=== PATIENT | female | born 1960 | race Caucasian/White ===

== ENCOUNTER 2023-09-26 09:17 | Outpatient (CLI) | payer BC, SELFPAY | END 2023-09-26 09:18 | disposition home or self-care (01) | LOC: NFLDREF 09-28 13:45 | PROVIDERS: Visit Provider Obstetrics & Gynecology | DX: Z01.419 Encounter for gynecological examination (general) (routine) without abnormal findings (principal); Z13.6 Encounter for screening for cardiovascular disorders | CPT/HCPCS: 80061 ==

== ENCOUNTER 2023-11-15 11:28 | Outpatient (CLI) | payer BC, SELFPAY ==
--- NOTE | 2023-11-15 11:30 | CRLHL7_ITS ---
For Patients: As a result of the Century Cures Act, medical imaging exams and procedure reports are released immediately into your electronic medical record. You may view this report before your referring provider. If you have questions, please contact your health care provider. BILATERAL DIGITAL SCREENING MAMMOGRAM WITH COMPUTER-AIDED DETECTION AND TOMOSYNTHESIS CLINICAL HISTORY: Routine screening exam. COMPARISON: 05/12/2022, 02/18/2021. TECHNIQUE: Digital mammogram in CC and MLO projections including computer-aided detection (CAD). Tomosynthesis was used in this interpretation. BREAST COMPOSITION: There are scattered areas of fibroglandular density. FINDINGS: RIGHT Breast: Focal nodular density within the lower outer quadrant 7 cm from the nipple. LEFT Breast: No suspicious findings. IMPRESSION: RIGHT breast asymmetry/mass. RECOMMENDATIONS: Additional mammographic views of the RIGHT breast including 3D spot compression cc/MLO. RIGHT breast ultrasound may also be required. BI-RADS Category 0: Incomplete: Need Additional Imaging Evaluation and/or Prior Mammograms for Comparison The [facility] will contact the patient for follow-up. A lay language report of this examination will be provided to the patient. Dictated by Sawyer Billings MD @ 11/21/2023 8:44:26 AM jj/Dictated by: Sawyer Billings MD @ 11/21/2023 8:44:00 AM (Electronically Signed)
== END 2023-11-15 11:29 | disposition home or self-care (01) ==
LOC: MAMMO 11:29
PROVIDERS: Visit Provider Obstetrics & Gynecology
DX: Z12.31 Encounter for screening mammogram for malignant neoplasm of breast (principal); N63.10 Unspecified lump in the right breast, unspecified quadrant
CPT/HCPCS: 77063; 77067

== ENCOUNTER 2023-11-22 10:51 | Outpatient (CLI) | payer BC, SELFPAY ==
--- NOTE | 2023-11-22 10:45 | CRLHL7_ITS ---
For Patients: As a result of the Century Cures Act, medical imaging exams and procedure reports are released immediately into your electronic medical record. You may view this report before your referring provider. If you have questions, please contact your health care provider. RIGHT DIAGNOSTIC MAMMOGRAM WITH TOMOSYNTHESIS 11/22/2023 RIGHT ULTRASOUND 11/22/2023 CLINICAL HISTORY: RIGHT breast mass/asymmetry. COMPARISON: 11/15/2023. TECHNIQUE: Digital RIGHT mammogram in 2 projections. Tomosynthesis was used in this interpretation. Real-time ultrasound imaging of RIGHT breast with imaging documentation. BREAST COMPOSITION: Scattered fibroglandular densities. FINDINGS: 3D spot compression CC/MLO RIGHT breast mammogram images submitted. Persistent lobular density within the RIGHT breast. No architectural distortion or suspicious calcifications. Targeted RIGHT breast ultrasound performed at 8 o`clock 9 cm from the nipple. In this location there is a mildly prominent lymph node which has increased in size from the prior study. The cortex measures 2.6 millimeters. The lymph node measures 10 x 5 x 11 millimeters. IMPRESSION: Increased size of intramammary lymph node RIGHT breast 8 o`clock 9 cm from the nipple measuring up to 1.1 cm. RECOMMENDATIONS: Ultrasound-guided core needle biopsy recommended. BI-RADS Category 4: Suspicious The [facility] will contact the patient for follow-up. A lay language report of this examination will be provided to the patient. Dictated by Sawyer Billings MD @ 11/22/2023 12:12:34 PM RUPESH/brad DW/Dictated by: Sawyer Billings MD @ 11/22/2023 12:12:00 PM (Electronically Signed)
--- NOTE | 2023-11-22 11:15 | CRLHL7_ITS ---
For Patients: As a result of the Century Cures Act, medical imaging exams and procedure reports are released immediately into your electronic medical record. You may view this report before your referring provider. If you have questions, please contact your health care provider. Please see diagnostic RIGHT mammogram entry in CRTIS for combination RIGHT diagnostic mammogram/RIGHT breast ultrasound report. Sawyer Billings MD @11/22/2023 12:12:34 PM RUPESH/brad DW/Dictated by: Sawyer Billings MD @ 11/22/2023 12:12:00 PM (Electronically Signed)
== END 2023-11-22 10:52 | disposition home or self-care (01) ==
PROVIDERS: PCP Internal Medicine; Visit Provider Obstetrics & Gynecology
DX: N63.10 Unspecified lump in the right breast, unspecified quadrant (principal); R92.8 Other abnormal and inconclusive findings on diagnostic imaging of breast
CPT/HCPCS: 76642; 77065; G0279

== ENCOUNTER 2023-12-06 09:58 | Outpatient (CLI) | payer BC, SELFPAY ==
--- OUTSIDE RECORDS SUMMARY | 2023-12-06 10:09 | XMS_ITS | Clinical Summary ---
Author Organization [facility] Address [place], [place] [address] Care Team Providers Care Wheel Fitter Name Role Phone Varghese Nellie RIGGS Primary Care Provider [phone] Allergies Active Allergy Reactions Criticality Noted Date Comments Nickel Rash 08/19/2014 Medications Medication Sig Dispensed Refills Start Date End Date Status multivitamin (MVI) tabletIndications:We ll adult exam DoTerra vitamins 0 05/20/2018 Activ e ofloxacin 0.3 % ophthalmic (OCUFLOX) 0.3 % ophthalmic solutionIndications: Corneal irritation, right,Uveitis Place 1 Drop into right eye every hour. 5 mL 02/17/2019 Active lisinopril-hydrochlo rothiazide 20-12.5 mg tablet (PRINZIDE)Indication s:Essential hypertension,Routine general medical examination at a health care facility Take 2 tablets by mouth once daily. 180 tablet 2 03/30/2020 Active fluocinonide 0.05% topical (LIDEX) 0.05 % creamIndications:Pso riasis Apply topically to affected area(s) 2 times daily. 120 g 1 01/27/2021 Active fluocinonide 0.05 TOPICAL (LIDEX) 0.05 % external solutionIndications: Psoriasis Apply topically to affected area(s) two times daily. 60 mL 11/25/2021 Active atorvastatin (LIPITOR) 40 mg tabletIndications:Hy perlipidemia with target LDL less than 100 Take 1 Tablet (40 mg) by mouth at bedtime. 90 Tablet 3 04/27/2022 Active triamcinolone (ARISTOCORT; KENALOG) 0.1 % creamIndications:Pso riasis Apply topically to affected area(s) three times daily. 80 g 5 04/27/2022 Active betamethasone dipropionate 0.05% (DIPROSONE 0.05% CREAM) 0.05 % creamIndications:Pso riasis Apply topically to affected area(s) once daily. 45 g 5 04/27/2022 Active clotrimazole (LOTRIMIN) 1 % creamIndications:Pso riasis Apply topically to affected area(s) two times daily. 45 g 5 04/27/2022 Active amLODIPine (NORVASC) 5 mg tabletIndications:Es sential hypertension Take 1 Tablet (5 mg) by mouth once daily. 90 Tablet 05/24/2023 Active fluocinonide 0.05% topical (LIDEX) 0.05 % creamIndications:Pso riasis Apply topically to affected area(s) two times daily. 120 g 5 05/24/2023 Active Active Problems Problem Noted Date Diagnosed Date Polyp of colon 09/18/2022 Cervical high risk HPV (human papillomavirus) te st positive 01/27/2021 Overview (07/20/2022): 01/2021 NIL/HPV+, HPV 16/18 negative 04/2022 NIL/HPV+, HPV 16/18 negative. Plan: Colposcopy. patient called to remind to get colposcopy and she stated she did not want to do this. She was removed from colpo tracking so will not receive further reminders. Acute pain of left knee 10/06/2019 Hyperlipidemia LDL goal < 100 05/27/2012 Overview (01/27/2021): The 10-year ASCVD risk score (Carolynzachary THOMAS Jr., et al., 2013) is: 9.4% Values used to calculate the score: Age: 60 years Sex: Female Is Non- : No Diabetic: No Tobacco smoker: No Systolic Blood Pressure: 164 mmHg Is BP treated: Yes HDL Cholesterol: 51 mg/dL Total Cholesterol: 294 mg/dL Unspecified essential hypertension Encounters Date Type Department Care Team Description 09/26/2023 Lab Requisition [facility] [phone] Vu, Cristiane Walsh MD from Last 3 Months Immunizations Name Administration Dates Next Due Influenza, IIV3 (Age >=3 years) 01/13/2011 Influenza, IIV4 12/24/2020,12/24/2018 Influenza, IIV4 (=>6mos) MDV 01/21/2020, 01/08/2019,12/21/2016, 6 Influenza, Injectable, Mdck, Quadrivalent, W/preservative 12/29/2020 Tdap 05/27/2012 Zoster (Shingrix-RZV, recombinant) 06/30/2021, Family History Medical History Relation Name Comments Hypertension Brother Diabetes Mother Good Health Mother Hypertension Mother Heart Disease Sister IA age 47 Cancer-breast No Family History Relation Name Status Comments Brother Father Mother Alive Sister Social History Tobacco Use Types Packs/Day Years Used Date Smoking Tobacco: Former Cigarettes 1 25 1 03/28/1986 - 01/27/2012 Smokeless Tobacco: Never Tobacco Cessation:Counseling Given: Yes Comments:advised to quit /lag Alcohol Use Standard Drinks/Week Comments Yes 0 (1 standard drink = 0.6 oz pur e alcohol) 12 pack beer per week PHQ-2 Answer Date Recorded PHQ-2 TOTAL SCORE 0 01/27/2021 Social Connections Answer Date Recorded Frequency of Communication with Friends and Fami ly Not on file 03/25/2021 Financial Resource Strain Answer Date R ecorded Difficulty of Paying Living Expenses Not on file 03/25/2021 Difficulty of Paying Living Expenses Not on file 03/25/2021 Sex and Gender Information Value Date Recorded Sex Assigned at Not on file Gender Identity Not on file Sexual Orientation Not on file Obstetrics History Para Term AB IAB SAB Ectopic Multiple Livin g Live Births 3 3 3 1 4 Date Outcome GA Total Labor Labor/2nd/3rd Weight Sex Type Anes PTL Zainab A1 A5 Name Clin Term Term Term Last Filed Vital Signs Vital Sign Reading Time Taken Comments Blood Pressure 148/96 07/12/2023 11:25 AM CDT Pulse 124 07/12/2023 11:25 AM CDT Temperature 36.7 ??C (98.1 ??F) 07/12/2023 1 1:25 AM CDT Respiratory Rate 14 09/18/2022 8:27 AM CDT Oxygen Saturation 96% 07/12/2023 11: 25 AM CDT Inhaled Oxygen Concentration - - Weight 98.7 kg (217 lb 11.2 oz) 024 11:24 AM BELLOWS CHARGER ASSEMBLER Height 167.6 cm (5' 6) 04/27/2022 11:2 8 AM BELLOWS CHARGER ASSEMBLER Body Mass Index 35.14 04/27/2022 11:28 AM BELLOWS CHARGER ASSEMBLER Plan of Treatment Health Maintenance Due Date Last Done Comments HIV for age 15-65 [address] (for lung CA) age 50-80 2011 Depression screening for age 12+ 01/28/2022 01/28/2021, 01/28/2021, 01/27/2021, Additional history exists Tetanus booster 05/27/2022 05/27/2012 BMI (ht and wt on same day) for age 18+ 04/27/2023 04/27/2022, 01/27/2021, 02/19/2019, Additional history exists Pap test for age 21-65 04/27/2023 , 04/27/2022, 01/27/2021, Additional history exists Mammogram for age 45-75 05/12/2023 05/12/19 23, 02/18/2021, 06/01/2016, Additional history exists COVID-19 vaccine series (2022- season) 2023 Influenza for age 50-64 11/25/2023 12/30/19 21, 12/24/2020, 01/21/2020, Additional history exists Lipids for age 45-75 01/27/2026 01/27/2021, 02/19/2019, 12/19/2017, Additional history exists Colonoscopy through age 75 09/19/202709/18, 06/19/2016, 06/19/2016, Additional history exists Tdap Completed 05/27/2012 Hepatitis C screening for age 18-79 Completed 01/27/2021 Zoster (shingles) series for age 50+ Completed 06/30/2021, 01/27/2021 Pneumococcal series for age 6-64 Aged Out No longer eligible based on patient's age to complete this topic Procedures Procedure Name Priority Date/Time Associated Diagnosis Comments LAB TRACKING EVENT Routine 09/26/2023 10 :15 AM CDT PATH TISSUE EXAM Routine 09/26/2023 10:1 5 AM CDT COLONOSCOPY 09/18/2022 7:14 AM CDT XR MAMMO JASON BILAT SCREEN Routine 05/12/2022 10:57 AM BELLOWS CHARGER ASSEMBLER Breast cancer screening by mammogram HPV THIN PREP Routine 04/27/2022 4:29 PM BELLOWS CHARGER ASSEMBLER Cervical cancer screening ANTI HCV Routine 01/27/2021 10:59 AM CDT Need for hepatitis C screening test LIPID PANEL Routine 01/27/2021 10:59 AM CDT Hyperlipidemia LDL goal < 100 from Last 3 Months or Most Recently Relevant to Health Maintenance Results * LAB TRACKING EVENT (09/26/2023 10:15 AM CDT) Other (Other) Client Collect / Unknown 09/26/2023 10:15 AM CDT 09/26/2023 4:28 PM CDT Cristiane Sagastume MD LAB BILL ONLY [facility] [address] * PATH TISSUE EXAM (09/26/2023 10:15 AM CDT) Case Report Pathology Report ?Case: [id number] ? Authorizing Provider: ??Cristiane Sagastume MD ?Collected: ? 09/26/2023 1015 ? Ordering Location: ? [facility] ?Received: ?09/26/2023 1834 ? Pathologist: ? Becka Eaton MD ? Specimens: ?? A) - Cervical Biopsy ? B) - Cervical Biopsy ? C) - Cervical Biopsy ? D) - Endocervical Curettings ? E) - Vulvar Biopsy ? 10/01/2023 2:41 PM CDT [facility] Final Diagnosis A) CERVIX, 12:00, BIOPSY: 1. Benign cervical mucosa with chronic cervicitis ?? a. Sampling: Ectocervix and endocervix ?? b. Transformation zone: Present 2. Negative for glandular neoplasia, squamous intraepithelial lesion, ?? and malignancy B) CERVIX, 6:00, BIOPSY: 1. Benign cervical mucosa ? a. Sampling: Ectocervix and endocervix ?? b. Transformation zone: Not visualized 2. Negative for glandular neoplasia, squamous intraepithelial lesion, ?? and malignancy C) CERVIX, 2:00, BIOPSY: 1. Benign cervical mucosa with chronic cervicitis ?? a. Sampling: Ectocervix ?? b. Transformation zone: Not visualized 2. Negative for glandular neoplasia, squamous intraepithelial lesion, ?? and malignancy D) ENDOCERVIX, CURETTAGE: 1. Fragments of benign endocervical and ectocervical tissues 2. Negative for glandular neoplasia, squamous intraepithelial lesion, and malignancy E) VULVA, BIOPSY: 1. Lentigo with pigment incontinence 2. Negative for malignancy 10/01/2023 2:41 PM CDT [facility] Clinical Information NIL/HPV positivity Flat hyperpigmented lesion 10/01/2023 2:[address] [facility] Gross Description A) Received in formalin, labeled with the patient's name and A, is a single colvin mucosal fragment measuring 0.5 cm. The specimen is submitted in toto in one cassette. B) Received in formalin, labeled with the patient's name and B, is a single colvin mucosal fragment measuring 0.6 cm. The specimen is submitted in toto in one cassette. C) Received in formalin, labeled with the patient's name and C, is a 0.6 x 0.3 x 0.2 cm aggregate of pink-colvin mucosa admixed with clotted blood and mucous. The specimen is entirely submitted in 1 cassette. D) Received in formalin, labeled with the patient's name and D, is a 2.5 x 0.9 x 0.2 cm aggregate of pink-colvin mucosa admixed with clotted blood and mucous. The specimen is entirely submitted in 1 cassette. E) Received in formalin, labeled with the patient's name and E, is a 0.2 x 0.2 x 0.7 cm skin punch biopsy. The skin surface is remarkable for a 0.2 x 0.2 cm flat colvin-brown lesion. ??The specimen is inked green, bisected and entirely submitted in one cassette. EVM 09/26/2023 10/01/2023 2:41 PM CDT [facility] Microscopic Description The final diagnosis is based on microscopic examination of appropriate sections of all specimens. 10/01/2023 2:[address] [facility] Additional Information Interpreted at [facility] - [address] [place] [id number] 10/01/2023 2:41 PM CDT [facility] Other (Cervical Biopsy) 09/26/2023 10:15 AM CDT 09/26/2023 6:34 PM CDT Specimen (specimen) (Cervical Biopsy) 09/26/2023 10:15 AM CDT 09/26/2023 6:34 PM CDT Specimen (specimen) (Cervical Biopsy) 09/26/2023 10:15 AM CDT 09/26/2023 6:34 PM CDT Specimen (specimen) (Endocervical Curettings) 09/26/2023 10:15 AM CDT 09/26/2023 6:34 PM CDT Specimen (specimen) (Vulvar Biopsy) 09/26/2023 10:15 AM CDT 09/26/2023 6:34 PM CDT Cristiane Jillian Sagastume MD PATHOLOGY/CYTOLOGY [facility] [address] [place] [address], * COLONOSCOPY (09/18/2022 7:14 AM CDT) 09/18/2022 7:14 AM CDT Narrative Transcriptions Saleem Mendez DO - 09/18/2022 8:28 AM CDT Patient Name: Gia Portillo Procedure Date: 09/18/2022 Gender: Female Date of : 1960 Admit Type: Ambulatory Procedure: Colonoscopy Proceduralist: Saleem Mendez MD [place] [facility] Referring MD: Saleem Mendez MD Indications/Pre-Op Diagnosis: High risk colon cancer surveillance:Personal history of colonic polyps, Last colonoscopy5 years ago Medications: Propofol per Anesthesia Procedure Description: The patient had risks, benefits and alternatives explained to andgave informed consent. The patient had a stable cardiopulmonary status and judged an adequate candidate for conscious sedation. The endoscope [id number] was passed through the anus andadvanced to the cecum, identified by appendiceal orifice and ileocecal valve.The colonoscopy was performed without difficulty. The patient toleratedthe procedure well. The quality of the bowel preparation was good. The ileocecal valve, appendiceal orifice, and rectum were photographed. Complications: No immediate complications. Estimated Blood Loss & Specimen: Estimated blood loss: none. Specimen collected - Yes and sent to Laboratory Findings: A 4 mm polyp was found in the sigmoid colon. The polyp was sessile.The polyp was removed with a hot snare. Resection and retrieval were complete. Verification of patient identification for the specimen was done. Estimated blood loss was minimal. A 3 mm polyp was found in the rectum. The polyp was sessile. Thepolyp was removed with a hot snare. Resection and retrieval were complete. Verification of patient identification for the specimen was done. Estimated blood loss was minimal. A few small-mouthed diverticula were found in the sigmoid colon. Non-bleeding internal hemorrhoids were found during retroflexion. The hemorrhoids were Grade II (internal hemorrhoids that prolapse butreduce spontaneously). Impressions/Post-Op Diagnosis: - One 4 mm polyp in the sigmoid colon, removed with a hot snare. Resected and retrieved. - One 3 mm polyp in the rectum, removed with a hot snare. Resectedand retrieved. - Diverticulosis in the sigmoid colon. - Non-bleeding internal hemorrhoids. Recommendation: - Discharge patient to home. - Patient has a contact number available for emergencies. The signsand symptoms of potential delayed complications were discussed with the patient. Return to normal activities tomorrow. Written discharge instructions were provided to the patient. - High fiber diet. - Continue present medications. - Await pathology results. - Repeat colonoscopy in 5 years for surveillance. Moderate Sedation: Moderate (conscious) sedation was personally administered by an anesthesia professional. The following parameters were monitored:oxygen saturation, heart rate, blood pressure, and response to care. Saleem Mendez MD 09/18/2022 8:28:24 AM This report has been signed electronically. Note Initiated On: 09/18/2022 7:14 AM Saleem Mendez DO PROCEDURE ORD * XR MAMMO JASON BILAT SCREEN [[id number]] (05/12/2022 10:57 AM BELLOWS CHARGER ASSEMBLER) Anatomical Region Laterality Modality BREASTS, Breast Left, Breast Right Bilateral Mammography Impressions 05/12/2022 12:19 PM BELLOWS CHARGER ASSEMBLER ??There is no radiographic evidence for malignancy. ??Recommend annual mammograms. MAMMOGRAM ASSESSMENT: ??ACR 2 Benign PATIENTS: You will also receive a letter with your examination results in an easy to read format. ??If you have questions about your results, please contact your referring provider. Narrative 05/12/2022 12:19 PM BELLOWS CHARGER ASSEMBLER For Patients: As a result of the Century Cures Act, medical imaging exams and procedure reports are released immediately into your electronic medical record. You may view this report before your referring provider. If you have questions, please contact your health care provider. XR MAMMO JASON BILAT SCREEN [[id number]] CLINICAL HISTORY: ??This is an asymptomatic 62 y.o. patient. INDICATION FOR EXAM: Mammogram Screening. TECHNIQUE: CC & MLO views were obtained. ??This study was evaluated with the assistance of Computer-Aided Detection. Breast Tomosynthesis was used in interpretation. COMPARISON FILMS: Yes 02/18/21 [facility] ?? FINDINGS: ??The breasts have scattered areas of fibroglandular density. ??No suspicious masses or microcalcifications. ??Benign lymph nodes.. Samia Osborne MD MAMMO * (ABNORMAL) HPV HIGH RISK (04/27/2022 4:29 PM BELLOWS CHARGER ASSEMBLER) Pathologist [facility] TYPE 16 Negative Negative 05/02/2022 4:23 PM BELLOWS CHARGER ASSEMBLER [facility] TYPE 18 Negative Negative 05/02/2022 4:23 PM BELLOWS CHARGER ASSEMBLER [facility] OTHER HIGH RISK TYPES Positive(A) Negative 05/02/2022 4:23 PM BELLOWS CHARGER ASSEMBLER [facility] Other (Cervical) Non-Blood / Unknown 04/27/2022 4:29 PM BELLOWS CHARGER ASSEMBLER 04/28/2022 2:52 PM BELLOWS CHARGER ASSEMBLER Narrative [facility] - 05/02/2022 4:23 PM BELLOWS CHARGER ASSEMBLER Specimen is positive for the DNA of any one of, or combination of, the following high risk HPV types: 31, 33, 35, 39, 45, 51, 52, 56, 58, 59, 66, 68. HPV types 16 and 18 DNA were undetectable or below the pre-set threshold. ? Methodology: Harsha Saida 4800 HPV Test Samia Osborne [facility] [address] [place] [address], [place] * ANTI HCV (01/27/2021 10:59 AM CDT) Pathologist [facility] HEPATITIS C ANTIBODY Non-React diana Non-React diana 01/27/2021 9:[address] [facility] Comment:Antibodies to HCV no t detected; does not exclude the possibility of exposure to HCV. Blood BLOOD SPECIMEN / Unknown Venipuncture / Unknown 01/27/2021 10:59 AM CDT 01/27/2021 11:01 AM CDT Samia Osborne MD SEND OU TS [facility] [address] [place] [address], [place] * (ABNORMAL) LIPID PANEL (01/27/2021 10:59 AM CDT) CHOLESTEROL,TOTAL 242(H) 100 - 199 mg/dL 01/27/2021 11:35 AM CDT [facility] TRIGLYCERIDES 135 <150 mg/dL 01/27/2021 11:35 AM CDT [facility] HDL CHOLESTEROL 59 >40 mg/dL 11:35 AM CDT [facility] NON-HDL CHOLESTEROL 183(H) <145 mg/dl 01/27/2021 11:35 AM CDT [facility] CHOL/HDL RATIO 4.10 <4.50 01/27/2021 11:35 AM CDT [facility] LDL CHOLESTEROL 156(H) <=130 mg/dL 01/27/2021 11:35 AM CDT [facility] VLDL CHOLESTEROL 27 <=30 mg/dL 01/28/20 21 11:35 AM CDT [facility] PROVIDER ORDERED STATUS RANDOM 01/27/2021 11:35 AM CDT [facility] Blood BLOOD SPECIMEN / Unknown Venipuncture / Unknown 01/27/2021 10:59 AM CDT 01/27/2021 11:01 AM CDT Samia Osborne MD [facility] [employer] [employer] [facility] [address] [address] from Last 3 Months or Most Recently Relevant to Health Maintenance Advance Directives Documents on File Type Date Recorded Patient Adult Basic Education Instructor Expl anation Healthcare Directive 01/23/2020 020 * Full Code (Latest Code Status on File) Date Activated Date Inactivated Comments 09/18/2022 6:45 AM 09/18/2022 11:35 AM Question Answer Comments Code Status Discussion: Discussed Care Teams Wheel Fitter Relationship Specialty Start Date End Date Nellie Kwong NP [address] [facility] [place] [address] PCP - General Family Practice 05/26/16
--- NOTE | 2023-12-06 10:15 | CRLHL7_ITS ---
For Patients: As a result of the Century Cures Act, medical imaging exams and procedure reports are released immediately into your electronic medical record. You may view this report before your referring provider. If you have questions, please contact your health care provider. ULTRASOUND-GUIDED RIGHT BREAST BIOPSY AND POST-BIOPSY DIGITAL MAMMOGRAM FOR BIOPSY MARKER PLACEMENT CLINICAL HISTORY: Indeterminate nodule. COMPARISON STUDIES: 11/22/2023. TECHNIQUE: Real-time ultrasound with image documentation was used for targeting the breast lesion. Core biopsy specimens were obtained using an automated gun with a 18-gauge biopsy needle. Post-biopsy CC and ML digital mammograms were obtained to document position of the biopsy marker. CONSENT and TIME OUT: The procedure, risks, and alternatives were explained to the patient and a consent was signed. [place] Protocol was followed including pre-procedure verification that relevant information/documentation was available, reviewed and properly matched to the patient; consent accurate and complete; and equipment and supplies available. Time Out was conducted just prior to starting procedure to verify the four required elements: patient identity, correct side/site marked (if applicable), procedure, relevant images/results properly labeled and displayed (if applicable). PROCEDURE: The patient was positioned supine on the ultrasound table. The breast was prepped with ChloraPrep. 5 cc of 1 percent lidocaine used for local anesthesia. Core samples were obtained. A sterile metal biopsy clip was placed percutaneously to sterling the lesion position within the breast. The specimens were placed in 10% formalin and sent to the pathology department. Pressure was held on the biopsy site until all bleeding subsided. The skin incision was closed with Steri-Strips. An ice pack was positioned over the biopsy site. Post-biopsy instructions were reviewed with the patient, and a written copy was given to her. LATERALITY: RIGHT breast. LESION: Hyperechoic/hypoechoic nodule measuring 10 x 5 x 11 mm at 8 o`clock 9 cm from the nipple. SUSPICION FOR MALIGNANCY: Intermediate. NUMBER OF SAMPLES: 6. BIOPSY CLIP SHAPE: Oval. PROXIMITY OF CLIP TO TARGET: Within the lesion. IMPRESSION: Ultrasound-guided breast biopsy. When the pathology report is available, an addendum to this report will be made. ACR not applicable Dictated by Sawyer Billings MD @ 12/06/2023 1:06:30 PM /romy/sanya SP/Dictated by: Sawyer Billings MD @ 12/06/2023 1:06:00 PM (Electronically Signed)
--- NOTE | 2023-12-06 11:00 | CRLHL7_ITS ---
For Patients: As a result of the Century Cures Act, medical imaging exams and procedure reports are released immediately into your electronic medical record. You may view this report before your referring provider. If you have questions, please contact your health care provider. PLEASE SEE RIGHT ULTRASOUND-GUIDED BIOPSY OF SAME DAY. CRL:sp SP/Dictated by: Sawyer Billings MD @ 12/06/2023 1:06:00 PM (Electronically Signed)
== END 2023-12-06 09:59 | disposition home or self-care (01) ==
LOC: US 09:59
PROVIDERS: PCP Internal Medicine; Visit Provider Obstetrics & Gynecology
DX: N63.10 Unspecified lump in the right breast, unspecified quadrant (principal); R92.8 Other abnormal and inconclusive findings on diagnostic imaging of breast
CPT/HCPCS: 19083; 77065; 88305; A4648; A4649